=== PATIENT | male | born 1935 | race Caucasian/White ===

== ENCOUNTER 2017-01-28 12:24 | Inpatient (IN) | payer OTHER, MEDICARE ==
[~2017-01-28 12:24] MED LIST: ADALAT CC60 M1 PO; ALLOPURINOL300 M1 PO; FISH OIL 1,0001 EA10 PO; FUROSEMIDE40 M2 PO; GLIPIZIDE5 M2 PO; LIDOCAINE HC28.35 GM TP; PRINIVIL10 M1 PO; REFRESH PLUS1 EACH OP; ZOCOR80 M1 PO
[2017-01-28] MEDS ORDERED: LASIX40 M1 PO (12:53)
[2017-01-28] MEDS ORDERED: PREDNISONE5 M1 PO (12:53)
[2017-01-28] MEDS ORDERED: ZYLOPRIM300 M1 PO (12:54)
[2017-01-28] MEDS ORDERED: ELIQUIS5 M1 PO (12:54)
[2017-01-28] MEDS ORDERED: ARTIFICIAL TEAR1512 EACH EYE (12:55)
[2017-01-28] MEDS ORDERED: ASPIRIN EC81 MG PO (12:55)
[2017-01-28] MEDS ORDERED: LOPRESSOR50 M1 PO (12:56)
[2017-01-28 13:13] LABS: BASO % 0.2 % (0-2); EOS % 0.4 % (0-7); HCT-HEMATOCRIT 37.5 % (36.0-53.5); HGB-HEMOGLOBIN 11.7 gm/dl (13.5-17.0); IMMATURE GRANULOCYTES ABSOLUTE 0.03 tho/cmm (0-0.03); IMMATURE GRANULOCYTES PERCENT 0.5 % (0-0.3); LYMPH % 20.1 % (20-45); LYMPH ABSOLUTE COUNT 1.1 tho/cmm (0.8-4.5); MCH (MEAN CORPUSCULAR HGB) 29.1 pg (28.0-32.0); MCHC MEAN CORPUSCULAR HGB CONC 31.2 % (32.0-36.0); MCV (MEAN CELL VOLUME) 93.3 fl (82.0-96.0); MONO % 8.5 % (0-12); MONOCYTE ABSOLUTE COUNT 0.5 tho/cmm (0.0-1.2); NEUTROPHILS % 70.3 % (40-80); RED BLOOD COUNT 4.02 mil/cmm (4.40-5.70); WHITE BLOOD COUNT 5.7 tho/cmm (4.0-10.0)
[2017-01-28 13:20] LABS: INR 1.4 INR (0.9-1.1); PROTHROMBIN TIME 16.5 SECONDS (9.0-13.6)
[2017-01-28 13:30] LABS: PLATELET COUNT 87 tho/cmm (150-450)
[2017-01-28 13:38] LABS: ALB/GLOB RATIO 0.6 (0.8-2.0); ALBUMIN 2.4 g/dl (3.5-5.0); ALKALINE PHOSPHATASE 98 U/L (33-138); ALT/SGPT 42 U/L (12-78); ANION GAP 12 mmol/L (0-20); BILIRUBIN,TOTAL 2.1 mg/dl (0.0-1.5); BLOOD UREA NITROGEN 53 mg/dl (6-24); CALCIUM 8.4 mg/dl (8.5-10.5); CARBON DIOXIDE-VENOUS 27 mmol/L (22-32); CHLORIDE 101 mmol/l (96-110); GLUCOSE 117 mg/dL (70-110); SODIUM 136 mmol/L (135-145); eGFR VALUE FOR BLACK 39 mL/Min
[2017-01-28 13:39] LABS: AST/SGOT 62 U/L (10-40); POTASSIUM 4.4 mmol/L (3.7-5.1)
[2017-01-28 21:01] LABS: C-REACTIVE PROTEIN 13.7 mg/dl (0-0.9); MAGNESIUM 2.1 mg/dl (1.3-2.6)
[2017-01-29 05:53] LABS: ANION GAP 13 mmol/L (0-20); BLOOD UREA NITROGEN 46 mg/dl (6-24); CALCIUM 7.8 mg/dl (8.5-10.5); CARBON DIOXIDE-VENOUS 26 mmol/L (22-32); CHLORIDE 105 mmol/l (96-110); CREATININE 1.78 mg/dl (0.60-1.30); GLUCOSE 110 mg/dL (70-110); POTASSIUM 4.2 mmol/L (3.7-5.1); SODIUM 140 mmol/L (135-145); eGFR VALUE FOR BLACK 40 mL/Min
[2017-01-30 05:25] LABS: ANION GAP 14 mmol/L (0-20); BLOOD UREA NITROGEN 44 mg/dl (6-24); CALCIUM 7.4 mg/dl (8.5-10.5); CARBON DIOXIDE-VENOUS 24 mmol/L (22-32); CHLORIDE 107 mmol/l (96-110); CREATININE 1.86 mg/dl (0.60-1.30); GLUCOSE 133 mg/dL (70-110); POTASSIUM 3.6 mmol/L (3.7-5.1); SODIUM 141 mmol/L (135-145); eGFR VALUE FOR BLACK 38 mL/Min
[2017-01-31 06:28] LABS: BASO % 0.2 % (0-2); EOS % 0.7 % (0-7); HCT-HEMATOCRIT 35.4 % (36.0-53.5); HGB-HEMOGLOBIN 10.9 gm/dl (13.5-17.0); IMMATURE GRANULOCYTES ABSOLUTE 0.04 tho/cmm (0-0.03); IMMATURE GRANULOCYTES PERCENT 0.7 % (0-0.3); LYMPH % 13.9 % (20-45); LYMPH ABSOLUTE COUNT 0.8 tho/cmm (0.8-4.5); MCHC MEAN CORPUSCULAR HGB CONC 30.8 % (32.0-36.0); MCV (MEAN CELL VOLUME) 94.1 fl (82.0-96.0); MONO % 4.4 % (0-12); MONOCYTE ABSOLUTE COUNT 0.3 tho/cmm (0.0-1.2); NEUTROPHIL ABSOLUTE COUNT 4.7 tho/cmm (1.6-8.0); NEUTROPHIL-AUTOMATED 4.7 tho/cmm (1.6-8.0); NEUTROPHILS % 80.1 % (40-80); PLATELET COUNT 81 tho/cmm (150-450); RED BLOOD COUNT 3.76 mil/cmm (4.40-5.70); RED CELL DISTRIBUTION WIDTH 16.7 % (12.4-16.4); WHITE BLOOD COUNT 5.9 tho/cmm (4.0-10.0)
[2017-01-31 06:46] LABS: ANION GAP 10 mmol/L (0-20); BLOOD UREA NITROGEN 46 mg/dl (6-24); C-REACTIVE PROTEIN 7.8 mg/dl (0-0.9); CALCIUM 8.2 mg/dl (8.5-10.5); CARBON DIOXIDE-VENOUS 30 mmol/L (22-32); CHLORIDE 107 mmol/l (96-110); CREATININE 2.08 mg/dl (0.60-1.30); GLUCOSE 90 mg/dL (70-110); POTASSIUM 4.1 mmol/L (3.7-5.1); SODIUM 143 mmol/L (135-145); eGFR VALUE FOR BLACK 33 mL/Min
[2017-02-01 05:30] LABS: BASO % 0.2 % (0-2); EOSINOPHIL ABSOLUTE COUNT 0.1 tho/cmm (0.0-0.7); HCT-HEMATOCRIT 39.1 % (36.0-53.5); HGB-HEMOGLOBIN 11.9 gm/dl (13.5-17.0); IMMATURE GRANULOCYTES ABSOLUTE 0.06 tho/cmm (0-0.03); IMMATURE GRANULOCYTES PERCENT 0.9 % (0-0.3); LYMPH % 20.3 % (20-45); LYMPH ABSOLUTE COUNT 1.3 tho/cmm (0.8-4.5); MCHC MEAN CORPUSCULAR HGB CONC 30.4 % (32.0-36.0); MCV (MEAN CELL VOLUME) 95.4 fl (82.0-96.0); MEAN PLATELET VOLUME 12.9 cmc (9.4-12.4); MONOCYTE ABSOLUTE COUNT 0.5 tho/cmm (0.0-1.2); NEUTROPHIL ABSOLUTE COUNT 4.5 tho/cmm (1.6-8.0); NEUTROPHIL-AUTOMATED 4.5 tho/cmm (1.6-8.0); NEUTROPHILS % 68.6 % (40-80); PLATELET COUNT 88 tho/cmm (150-450); RED CELL DISTRIBUTION WIDTH 16.9 % (12.4-16.4); WHITE BLOOD COUNT 6.6 tho/cmm (4.0-10.0)
[2017-02-01 05:45] LABS: ANION GAP 12 mmol/L (0-20); BLOOD UREA NITROGEN 51 mg/dl (6-24); CALCIUM 8.5 mg/dl (8.5-10.5); CARBON DIOXIDE-VENOUS 28 mmol/L (22-32); CHLORIDE 108 mmol/l (96-110); CREATININE 2.28 mg/dl (0.60-1.30); GLUCOSE 111 mg/dL (70-110); POTASSIUM 4.5 mmol/L (3.7-5.1); SODIUM 143 mmol/L (135-145); eGFR VALUE FOR BLACK 30 mL/Min
[2017-02-01 19:35] LABS: URINE BILIRUBIN NEGATIVE (NEG); URINE BLOOD NEGATIVE (NEG); URINE GLUCOSE (UA) NEGATIVE (NEG); URINE KETONE SMALL (NEG); URINE LEUKOCYTE ESTERASE NEGATIVE (NEG); URINE NITRITE NEGATIVE (NEG); URINE PROTEIN MODERATE (NEG)
[2017-02-01 19:38] LABS: URINE APPEARANCE CLEAR; URINE COLOR YELLOW
[2017-02-01 19:46] LABS: URINE RBC 0-1 /[HPF] (0-5)
[2017-02-01 19:48] LABS: URINE EPITHELIAL CELLS 0-1 /[HPF] (0-10)
[2017-02-01 19:49] LABS: URINE AMORPHOUS 1+; URINE MUCUS 1+
[2017-02-01 19:54] LABS: URINE CREATININE-RANDOM 155 mg/dl (30-125); URINE SODIUM-RANDOM 18 mmol/L (20-110)
[2017-02-02 04:47] LABS: BASO % 0.2 % (0-2); EOS % 0.6 % (0-7); HCT-HEMATOCRIT 37.7 % (36.0-53.5); HGB-HEMOGLOBIN 11.3 gm/dl (13.5-17.0); IMMATURE GRANULOCYTES ABSOLUTE 0.06 tho/cmm (0-0.03); IMMATURE GRANULOCYTES PERCENT 0.9 % (0-0.3); LYMPH % 14.3 % (20-45); MCH (MEAN CORPUSCULAR HGB) 28.8 pg (28.0-32.0); MCV (MEAN CELL VOLUME) 95.9 fl (82.0-96.0); MEAN PLATELET VOLUME 12.2 cmc (9.4-12.4); MONO % 5.1 % (0-12); MONOCYTE ABSOLUTE COUNT 0.3 tho/cmm (0.0-1.2); NEUTROPHIL ABSOLUTE COUNT 5.3 tho/cmm (1.6-8.0); NEUTROPHIL-AUTOMATED 5.3 tho/cmm (1.6-8.0); NEUTROPHILS % 78.9 % (40-80); PLATELET COUNT 91 tho/cmm (150-450); RED BLOOD COUNT 3.93 mil/cmm (4.40-5.70); RED CELL DISTRIBUTION WIDTH 16.8 % (12.4-16.4); WHITE BLOOD COUNT 6.7 tho/cmm (4.0-10.0)
[2017-02-02 04:55] LABS: ALBUMIN 2.5 g/dl (3.5-5.0); ANION GAP 10 mmol/L (0-20); BLOOD UREA NITROGEN 50 mg/dl (6-24); CALCIUM 8.4 mg/dl (8.5-10.5); CARBON DIOXIDE-VENOUS 29 mmol/L (22-32); CHLORIDE 108 mmol/l (96-110); CREATININE 1.99 mg/dl (0.60-1.30); GLUCOSE 98 mg/dL (70-110); MAGNESIUM 2.5 mg/dl (1.3-2.6); PHOSPHOROUS 4.5 mg/dl (2.5-4.9); POTASSIUM 4.8 mmol/L (3.7-5.1); SODIUM 142 mmol/L (135-145); eGFR VALUE FOR BLACK 35 mL/Min
[2017-02-03 06:35] LABS: HCT-HEMATOCRIT 36.6 % (36.0-53.5); HGB-HEMOGLOBIN 11.2 gm/dl (13.5-17.0); IMMATURE GRANULOCYTES ABSOLUTE 0.05 tho/cmm (0-0.03); IMMATURE GRANULOCYTES PERCENT 0.8 % (0-0.3); LYMPH % 7.8 % (20-45); LYMPH ABSOLUTE COUNT 0.5 tho/cmm (0.8-4.5); MCH (MEAN CORPUSCULAR HGB) 28.8 pg (28.0-32.0); MCHC MEAN CORPUSCULAR HGB CONC 30.6 % (32.0-36.0); MCV (MEAN CELL VOLUME) 94.1 fl (82.0-96.0); MEAN PLATELET VOLUME 12.4 cmc (9.4-12.4); MONO % 0.6 % (0-12); NEUTROPHIL ABSOLUTE COUNT 5.8 tho/cmm (1.6-8.0); NEUTROPHIL-AUTOMATED 5.8 tho/cmm (1.6-8.0); NEUTROPHILS % 90.8 % (40-80); PLATELET COUNT 104 tho/cmm (150-450); RED BLOOD COUNT 3.89 mil/cmm (4.40-5.70); RED CELL DISTRIBUTION WIDTH 16.7 % (12.4-16.4); WHITE BLOOD COUNT 6.4 tho/cmm (4.0-10.0)
[2017-02-03 06:47] LABS: ANION GAP 12 mmol/L (0-20); BLOOD UREA NITROGEN 58 mg/dl (6-24); CALCIUM 8.9 mg/dl (8.5-10.5); CARBON DIOXIDE-VENOUS 29 mmol/L (22-32); CHLORIDE 105 mmol/l (96-110); CREATININE 2.44 mg/dl (0.60-1.30); POTASSIUM 5.1 mmol/L (3.7-5.1); SODIUM 141 mmol/L (135-145); eGFR VALUE FOR BLACK 27 mL/Min
[2017-02-03 07:20] LABS: GLUCOSE 180 mg/dL (70-110)
[2017-02-04 05:20] LABS: HCT-HEMATOCRIT 34.6 % (36.0-53.5); HGB-HEMOGLOBIN 10.8 gm/dl (13.5-17.0); IMMATURE GRANULOCYTES ABSOLUTE 0.04 tho/cmm (0-0.03); IMMATURE GRANULOCYTES PERCENT 0.4 % (0-0.3); LYMPH % 3.7 % (20-45); LYMPH ABSOLUTE COUNT 0.3 tho/cmm (0.8-4.5); MCH (MEAN CORPUSCULAR HGB) 29.1 pg (28.0-32.0); MCHC MEAN CORPUSCULAR HGB CONC 31.2 % (32.0-36.0); MCV (MEAN CELL VOLUME) 93.3 fl (82.0-96.0); MEAN PLATELET VOLUME 12.7 cmc (9.4-12.4); MONO % 1.4 % (0-12); MONOCYTE ABSOLUTE COUNT 0.1 tho/cmm (0.0-1.2); NEUTROPHIL ABSOLUTE COUNT 8.7 tho/cmm (1.6-8.0); NEUTROPHIL-AUTOMATED 8.7 tho/cmm (1.6-8.0); NEUTROPHILS % 94.5 % (40-80); PLATELET COUNT 121 tho/cmm (150-450); RED BLOOD COUNT 3.71 mil/cmm (4.40-5.70); RED CELL DISTRIBUTION WIDTH 16.8 % (12.4-16.4); WHITE BLOOD COUNT 9.2 tho/cmm (4.0-10.0)
[2017-02-04 05:23] LABS: ANION GAP 15 mmol/L (0-20); BLOOD UREA NITROGEN 69 mg/dl (6-24); CALCIUM 8.9 mg/dl (8.5-10.5); CARBON DIOXIDE-VENOUS 25 mmol/L (22-32); CHLORIDE 104 mmol/l (96-110); CREATININE 2.63 mg/dl (0.60-1.30); GLUCOSE 200 mg/dL (70-110); POTASSIUM 4.5 mmol/L (3.7-5.1); SODIUM 139 mmol/L (135-145); eGFR VALUE FOR BLACK 25 mL/Min
[2017-02-04 21:51] LABS: URINE PRT/CR RATIO 0.26 Ratio (0.0-0.20); URINE TOTAL PROTEIN-RANDOM 41.3 mg/dl (<11.8)
[2017-02-05 04:47] LABS: BASO % 0.1 % (0-2); HCT-HEMATOCRIT 38.5 % (36.0-53.5); HGB-HEMOGLOBIN 11.9 gm/dl (13.5-17.0); IMMATURE GRANULOCYTES ABSOLUTE 0.07 tho/cmm (0-0.03); IMMATURE GRANULOCYTES PERCENT 0.6 % (0-0.3); LYMPH % 4.8 % (20-45); LYMPH ABSOLUTE COUNT 0.6 tho/cmm (0.8-4.5); MCHC MEAN CORPUSCULAR HGB CONC 30.9 % (32.0-36.0); MCV (MEAN CELL VOLUME) 93.9 fl (82.0-96.0); MONOCYTE ABSOLUTE COUNT 0.5 tho/cmm (0.0-1.2); NEUTROPHIL ABSOLUTE COUNT 10.7 tho/cmm (1.6-8.0); NEUTROPHIL-AUTOMATED 10.7 tho/cmm (1.6-8.0); NEUTROPHILS % 90.5 % (40-80); PLATELET COUNT 134 tho/cmm (150-450); RED CELL DISTRIBUTION WIDTH 17.7 % (12.4-16.4); WHITE BLOOD COUNT 11.9 tho/cmm (4.0-10.0)
[2017-02-05 05:11] LABS: ALBUMIN 2.8 g/dl (3.5-5.0); ANION GAP 12 mmol/L (0-20); BLOOD UREA NITROGEN 87 mg/dl (6-24); CALCIUM 8.9 mg/dl (8.5-10.5); CARBON DIOXIDE-VENOUS 28 mmol/L (22-32); CHLORIDE 103 mmol/l (96-110); CREATININE 2.93 mg/dl (0.60-1.30); GLUCOSE 199 mg/dL (70-110); MAGNESIUM 2.7 mg/dl (1.3-2.6); PHOSPHOROUS 3.9 mg/dl (2.5-4.9); SODIUM 138 mmol/L (135-145); eGFR VALUE FOR BLACK 22 mL/Min
[2017-02-06 04:43] LABS: BASO % 0.1 % (0-2); HCT-HEMATOCRIT 38.1 % (36.0-53.5); HGB-HEMOGLOBIN 11.7 gm/dl (13.5-17.0); IMMATURE GRANULOCYTES ABSOLUTE 0.07 tho/cmm (0-0.03); IMMATURE GRANULOCYTES PERCENT 0.9 % (0-0.3); LYMPH ABSOLUTE COUNT 0.5 tho/cmm (0.8-4.5); MCH (MEAN CORPUSCULAR HGB) 28.7 pg (28.0-32.0); MCHC MEAN CORPUSCULAR HGB CONC 30.7 % (32.0-36.0); MCV (MEAN CELL VOLUME) 93.6 fl (82.0-96.0); MEAN PLATELET VOLUME 12.5 cmc (9.4-12.4); MONO % 3.7 % (0-12); MONOCYTE ABSOLUTE COUNT 0.3 tho/cmm (0.0-1.2); NEUTROPHIL ABSOLUTE COUNT 7.3 tho/cmm (1.6-8.0); NEUTROPHIL-AUTOMATED 7.3 tho/cmm (1.6-8.0); NEUTROPHILS % 89.3 % (40-80); PLATELET COUNT 110 tho/cmm (150-450); RED BLOOD COUNT 4.07 mil/cmm (4.40-5.70); WHITE BLOOD COUNT 8.1 tho/cmm (4.0-10.0)
[2017-02-06 04:52] LABS: ANION GAP 9 mmol/L (0-20); BLOOD UREA NITROGEN 95 mg/dl (6-24); CALCIUM 8.8 mg/dl (8.5-10.5); CARBON DIOXIDE-VENOUS 28 mmol/L (22-32); CHLORIDE 104 mmol/l (96-110); CREATININE 2.81 mg/dl (0.60-1.30); GLUCOSE 202 mg/dL (70-110); POTASSIUM 4.9 mmol/L (3.7-5.1); SODIUM 136 mmol/L (135-145); eGFR VALUE FOR BLACK 23 mL/Min
[2017-02-07 04:30] LABS: ALBUMIN 2.6 g/dl (3.5-5.0); ANION GAP 9 mmol/L (0-20); BLOOD UREA NITROGEN 97 mg/dl (6-24); CALCIUM 8.7 mg/dl (8.5-10.5); CARBON DIOXIDE-VENOUS 28 mmol/L (22-32); CHLORIDE 104 mmol/l (96-110); CREATININE 2.52 mg/dl (0.60-1.30); GLUCOSE 178 mg/dL (70-110); PHOSPHOROUS 4.8 mg/dl (2.5-4.9); POTASSIUM 5.3 mmol/L (3.7-5.1); SODIUM 136 mmol/L (135-145); eGFR VALUE FOR BLACK 26 mL/Min
[2017-02-07 04:53] LABS: BASO % 0.2 % (0-2); HCT-HEMATOCRIT 38.6 % (36.0-53.5); HGB-HEMOGLOBIN 12.1 gm/dl (13.5-17.0); IMMATURE GRANULOCYTES ABSOLUTE 0.14 tho/cmm (0-0.03); IMMATURE GRANULOCYTES PERCENT 1.5 % (0-0.3); LYMPH % 6.3 % (20-45); LYMPH ABSOLUTE COUNT 0.6 tho/cmm (0.8-4.5); MCH (MEAN CORPUSCULAR HGB) 29.3 pg (28.0-32.0); MCHC MEAN CORPUSCULAR HGB CONC 31.3 % (32.0-36.0); MCV (MEAN CELL VOLUME) 93.5 fl (82.0-96.0); MEAN PLATELET VOLUME 13.1 cmc (9.4-12.4); MONO % 12.5 % (0-12); MONOCYTE ABSOLUTE COUNT 1.2 tho/cmm (0.0-1.2); NEUTROPHIL ABSOLUTE COUNT 7.4 tho/cmm (1.6-8.0); NEUTROPHIL-AUTOMATED 7.4 tho/cmm (1.6-8.0); NEUTROPHILS % 79.5 % (40-80); PLATELET COUNT 98 tho/cmm (150-450); RED BLOOD COUNT 4.13 mil/cmm (4.40-5.70); RED CELL DISTRIBUTION WIDTH 18.3 % (12.4-16.4); WHITE BLOOD COUNT 9.4 tho/cmm (4.0-10.0)
[2017-02-08 05:45] LABS: ANION GAP 10 mmol/L (0-20); BLOOD UREA NITROGEN 87 mg/dl (6-24); CALCIUM 8.8 mg/dl (8.5-10.5); CARBON DIOXIDE-VENOUS 29 mmol/L (22-32); CHLORIDE 104 mmol/l (96-110); CREATININE 2.37 mg/dl (0.60-1.30); GLUCOSE 183 mg/dL (70-110); SODIUM 138 mmol/L (135-145); eGFR VALUE FOR BLACK 28 mL/Min
[2017-02-08 05:50] LABS: POTASSIUM 5.3 mmol/L (3.7-5.1)
[2017-02-08] MEDS ORDERED: LIDODERM1 EACH TD (15:06)
[2017-02-08] MEDS ORDERED: ELIQUIS2.5 M1 PO (15:07)
[2017-02-08] MEDS ORDERED: DELTASONE20 MG PO (15:10)
--- NOTE | 2017-02-08 18:04 | NUR ---
PATIENT AND SON EDUCATED ON EDEMA WEAR AND TOLD TO REMOVE EDEMA WEAR BEFORE BED.
== END 2017-02-08 17:30 | disposition home health service (06) | DRG 291 ==
LOC: EDMED 12:24 → EMR2 16:32 → PCUA 17:31
PROVIDERS: Emergency Medicine; Family Medicine; Internal Medicine; Internal Medicine Cardiovascular Disease; Internal Medicine Nephrology; Physician Assistant; ADMIT Family Medicine
DX: I13.0 Hypertensive heart and chronic kidney disease with heart failure and stage 1 through stage 4 chronic kidney disease, or unspecified chronic kidney disease (principal); I50.31 Acute diastolic (congestive) heart failure; N17.9 Acute kidney failure, unspecified; I47.2 Ventricular tachycardia; I95.9 Hypotension, unspecified; D69.6 Thrombocytopenia, unspecified; E11.22 Type 2 diabetes mellitus with diabetic chronic kidney disease; N10 Acute pyelonephritis; N18.3 Chronic kidney disease, stage 3 (moderate); I27.2 Other secondary pulmonary hypertension; I48.92 Unspecified atrial flutter; E87.5 Hyperkalemia; E78.5 Hyperlipidemia, unspecified; G89.29 Other chronic pain; M54.9 Dorsalgia, unspecified; M10.9 Gout, unspecified; I25.10 Atherosclerotic heart disease of native coronary artery without angina pectoris; J20.4 Acute bronchitis due to parainfluenza virus; D64.9 Anemia, unspecified; Z66 Do not resuscitate; Z95.1 Presence of aortocoronary bypass graft; Z79.82 Long term (current) use of aspirin; Z79.01 Long term (current) use of anticoagulants; Z79.84 Long term (current) use of oral hypoglycemic drugs; Z79.899 Other long term (current) drug therapy; Z79.52 Long term (current) use of systemic steroids; T37.8X5A Adverse effect of other specified systemic anti-infectives and antiparasitics, initial encounter; T36.0X5A Adverse effect of penicillins, initial encounter; Y92.239 Unspecified place in hospital as the place of occurrence of the external cause
CPT/HCPCS: A9500; G0008; J1815; J1940; J1956; J2405; J2543; J2785; J2920; J2930; J3370; J7030; J7050; J7512; P9045

== ENCOUNTER 2017-03-06 12:26 | Inpatient (IN) | payer OTHER, MEDICARE ==
[~2017-03-06 12:26] MED LIST changes: +ARTIFICIAL TEAR1512 EACH EYE; +ASPIRIN EC81 MG PO; +DELTASONE20 MG PO; +ELIQUIS2.5 M1 PO; +ELIQUIS5 M1 PO; +LASIX40 M1 PO; +LIDODERM1 EACH TD; +LOPRESSOR50 M1 PO; +PREDNISONE5 M1 PO; +ZYLOPRIM300 M1 PO
[2017-03-06] MEDS ORDERED: SYMBICORT 80-41 PUFF INH (12:40)
[2017-03-06] MEDS ORDERED: LASIX40 M1 PO (12:41)
[2017-03-06] MEDS ORDERED: DELTASONE20 MG PO (12:42)
[2017-03-06] MEDS ORDERED: SPIRIVA18 MC1 INH (12:43)
[2017-03-06 13:13] LABS: BASO % 0.2 % (0-2); EOSINOPHIL ABSOLUTE COUNT 0.1 tho/cmm (0.0-0.7); HCT-HEMATOCRIT 35.8 % (36.0-53.5); HGB-HEMOGLOBIN 10.8 gm/dl (13.5-17.0); IMMATURE GRANULOCYTES ABSOLUTE 0.11 tho/cmm (0-0.03); IMMATURE GRANULOCYTES PERCENT 0.9 % (0-0.3); MCH (MEAN CORPUSCULAR HGB) 30.3 pg (28.0-32.0); MCHC MEAN CORPUSCULAR HGB CONC 30.2 % (32.0-36.0); MEAN PLATELET VOLUME 11.9 cmc (9.4-12.4); MONO % 5.2 % (0-12); MONOCYTE ABSOLUTE COUNT 0.6 tho/cmm (0.0-1.2); NEUTROPHIL ABSOLUTE COUNT 10.4 tho/cmm (1.6-8.0); NEUTROPHIL-AUTOMATED 10.4 tho/cmm (1.6-8.0); NEUTROPHILS % 84.7 % (40-80); PLATELET COUNT 111 tho/cmm (150-450); RED BLOOD COUNT 3.56 mil/cmm (4.40-5.70); RED CELL DISTRIBUTION WIDTH 20.8 % (12.4-16.4); WHITE BLOOD COUNT 12.3 tho/cmm (4.0-10.0)
[2017-03-06 13:32] LABS: INR 1.7 INR (0.9-1.1); PROTHROMBIN TIME 19.8 SECONDS (9.0-13.6)
[2017-03-06 13:33] LABS: MCV (MEAN CELL VOLUME) 100.6 fl (82.0-96.0)
[2017-03-06 13:47] LABS: ANION GAP 17 mmol/L (0-20); BLOOD UREA NITROGEN 84 mg/dl (6-24); CALCIUM 8.2 mg/dl (8.5-10.5); CARBON DIOXIDE-VENOUS 27 mmol/L (22-32); CHLORIDE 106 mmol/l (96-110); CREATININE 2.64 mg/dl (0.60-1.30); GLUCOSE 114 mg/dL (70-110); POTASSIUM 3.7 mmol/L (3.7-5.1); SODIUM 146 mmol/L (135-145); eGFR VALUE FOR BLACK 25 mL/Min
[2017-03-06 14:45] LABS: URINE BILIRUBIN NEGATIVE (NEG); URINE BLOOD SMALL (NEG); URINE GLUCOSE (UA) NEGATIVE (NEG); URINE KETONE NEGATIVE (NEG); URINE LEUKOCYTE ESTERASE NEGATIVE (NEG); URINE NITRITE NEGATIVE (NEG); URINE PROTEIN NEGATIVE (NEG)
[2017-03-06 14:46] LABS: URINE APPEARANCE CLEAR; URINE COLOR YELLOW
[2017-03-06 15:24] LABS: URINE AMORPHOUS 1+; URINE EPITHELIAL CELLS 0-1 /[HPF] (0-10); URINE RBC 0-1 /[HPF] (0-5); URINE WBC 0-1 /[HPF] (0-5)
[2017-03-06 17:36] LABS: ABG CO2 ARTERIAL 25 mmol/L (21-27); ARTERIAL BLD GAS O2 SATURATION 98 % (95-98); ARTERIAL BLOOD GAS PCO2 45 mmHg (32-45); ARTERIAL PO2 115 mmHg (70-100); BICARBONATE 24 mmol/L (21-28); BLOOD GAS BASE EXCESS -2 mM/L (-/+3); PH 7.34 Units (7.35-7.45)
[2017-03-07 03:47] LABS: BASO % 0.1 % (0-2); EOS % 0.5 % (0-7); EOSINOPHIL ABSOLUTE COUNT 0.1 tho/cmm (0.0-0.7); HCT-HEMATOCRIT 35.8 % (36.0-53.5); IMMATURE GRANULOCYTES ABSOLUTE 0.32 tho/cmm (0-0.03); IMMATURE GRANULOCYTES PERCENT 1.7 % (0-0.3); LYMPH % 5.9 % (20-45); LYMPH ABSOLUTE COUNT 1.1 tho/cmm (0.8-4.5); MCH (MEAN CORPUSCULAR HGB) 30.1 pg (28.0-32.0); MCHC MEAN CORPUSCULAR HGB CONC 30.7 % (32.0-36.0); MCV (MEAN CELL VOLUME) 98.1 fl (82.0-96.0); MEAN PLATELET VOLUME 12.3 cmc (9.4-12.4); MONO % 3.5 % (0-12); MONOCYTE ABSOLUTE COUNT 0.7 tho/cmm (0.0-1.2); NEUTROPHIL ABSOLUTE COUNT 16.8 tho/cmm (1.6-8.0); NEUTROPHIL-AUTOMATED 16.8 tho/cmm (1.6-8.0); NEUTROPHILS % 88.3 % (40-80); PLATELET COUNT 101 tho/cmm (150-450); RED BLOOD COUNT 3.65 mil/cmm (4.40-5.70); RED CELL DISTRIBUTION WIDTH 20.8 % (12.4-16.4)
[2017-03-07 04:02] LABS: ANION GAP 16 mmol/L (0-20); BLOOD UREA NITROGEN 83 mg/dl (6-24); CALCIUM 7.7 mg/dl (8.5-10.5); CARBON DIOXIDE-VENOUS 27 mmol/L (22-32); CHLORIDE 104 mmol/l (96-110); CREATININE 2.33 mg/dl (0.60-1.30); POTASSIUM 3.9 mmol/L (3.7-5.1); SODIUM 143 mmol/L (135-145); eGFR VALUE FOR BLACK 29 mL/Min
[2017-03-07 04:06] LABS: GLUCOSE 180 mg/dL (70-110)
[2017-03-08 05:00] LABS: EOS % 1.4 % (0-7); EOSINOPHIL ABSOLUTE COUNT 0.2 tho/cmm (0.0-0.7); HCT-HEMATOCRIT 33.6 % (36.0-53.5); HGB-HEMOGLOBIN 10.3 gm/dl (13.5-17.0); IMMATURE GRANULOCYTES ABSOLUTE 0.12 tho/cmm (0-0.03); IMMATURE GRANULOCYTES PERCENT 0.9 % (0-0.3); LYMPH % 6.1 % (20-45); LYMPH ABSOLUTE COUNT 0.9 tho/cmm (0.8-4.5); MCHC MEAN CORPUSCULAR HGB CONC 30.7 % (32.0-36.0); MEAN PLATELET VOLUME 12.7 cmc (9.4-12.4); MONO % 5.6 % (0-12); MONOCYTE ABSOLUTE COUNT 0.8 tho/cmm (0.0-1.2); NEUTROPHIL ABSOLUTE COUNT 12.1 tho/cmm (1.6-8.0); NEUTROPHIL-AUTOMATED 12.1 tho/cmm (1.6-8.0); PLATELET COUNT 79 tho/cmm (150-450); RED BLOOD COUNT 3.43 mil/cmm (4.40-5.70); RED CELL DISTRIBUTION WIDTH 21.1 % (12.4-16.4)
[2017-03-08 05:16] LABS: ALB/GLOB RATIO 0.4 (0.8-2.0); ALBUMIN 1.7 g/dl (3.5-5.0); ALKALINE PHOSPHATASE 63 U/L (33-138); ALT/SGPT 32 U/L (12-78); ANION GAP 16 mmol/L (0-20); AST/SGOT 38 U/L (10-40); BILIRUBIN,TOTAL 1.3 mg/dl (0.0-1.5); BLOOD UREA NITROGEN 71 mg/dl (6-24); CARBON DIOXIDE-VENOUS 27 mmol/L (22-32); CHLORIDE 105 mmol/l (96-110); CREATININE 2.12 mg/dl (0.60-1.30); GLUCOSE 120 mg/dL (70-110); MAGNESIUM 1.9 mg/dl (1.8-2.6); PHOSPHOROUS 3.6 mg/dl (2.5-4.9); POTASSIUM 3.5 mmol/L (3.7-5.1); SODIUM 144 mmol/L (135-145); eGFR VALUE FOR BLACK 32 mL/Min
[2017-03-08 05:45] LABS: PROCALCITONIN 13.64 ng/ml (0.05-0.09)
--- NOTE | 2017-03-08 14:56 | NUR ---
[address] DEPRESSION WITH MONITOR, STAT EKG AND TRIPONIN ORDERED, EKG HAS CHANGES IN LEADS 2 AND LATERAL, UNSURE IF ALOT DIFFERENT THAN BEFORE, ALSO STAT TRIPONIN DRAWN AND SHAKEEL RN TO CALL WITH RESULTS WHEN BACK. PT DID HAVE SOME GENERALIZED DISCOMFORT EARLIER IN LEGS, NOT CHEST, AND 1 PAIN PILL WAS GIVEN TO HIM.
[2017-03-09 05:16] LABS: BASO % 0.1 % (0-2); EOS % 1.4 % (0-7); EOSINOPHIL ABSOLUTE COUNT 0.2 tho/cmm (0.0-0.7); HGB-HEMOGLOBIN 10.3 gm/dl (13.5-17.0); IMMATURE GRANULOCYTES ABSOLUTE 0.11 tho/cmm (0-0.03); IMMATURE GRANULOCYTES PERCENT 0.8 % (0-0.3); LYMPH % 8.4 % (20-45); LYMPH ABSOLUTE COUNT 1.2 tho/cmm (0.8-4.5); MCH (MEAN CORPUSCULAR HGB) 29.9 pg (28.0-32.0); MCHC MEAN CORPUSCULAR HGB CONC 30.3 % (32.0-36.0); MCV (MEAN CELL VOLUME) 98.6 fl (82.0-96.0); MONO % 4.3 % (0-12); MONOCYTE ABSOLUTE COUNT 0.6 tho/cmm (0.0-1.2); NEUTROPHIL ABSOLUTE COUNT 11.9 tho/cmm (1.6-8.0); NEUTROPHIL-AUTOMATED 11.9 tho/cmm (1.6-8.0); PLATELET COUNT 69 tho/cmm (150-450); RED BLOOD COUNT 3.45 mil/cmm (4.40-5.70); RED CELL DISTRIBUTION WIDTH 20.9 % (12.4-16.4)
[2017-03-09 05:30] LABS: ANION GAP 17 mmol/L (0-20); BLOOD UREA NITROGEN 68 mg/dl (6-24); CALCIUM 8.2 mg/dl (8.5-10.5); CARBON DIOXIDE-VENOUS 23 mmol/L (22-32); CHLORIDE 101 mmol/l (96-110); GLUCOSE 145 mg/dL (70-110); PHOSPHOROUS 4.9 mg/dl (2.5-4.9); POTASSIUM 4.3 mmol/L (3.7-5.1); SODIUM 137 mmol/L (135-145); eGFR VALUE FOR BLACK 28 mL/Min
[2017-03-09 05:38] LABS: MAGNESIUM 2.5 mg/dl (1.8-2.6)
[2017-03-09 07:19] LABS: WBC MORPHOLOGY TOXIC GRANULATION
[2017-03-10 07:14] LABS: BASO % 0.2 % (0-2); EOSINOPHIL ABSOLUTE COUNT 0.1 tho/cmm (0.0-0.7); HCT-HEMATOCRIT 30.4 % (36.0-53.5); HGB-HEMOGLOBIN 9.3 gm/dl (13.5-17.0); IMMATURE GRANULOCYTES ABSOLUTE 0.13 tho/cmm (0-0.03); IMMATURE GRANULOCYTES PERCENT 1.1 % (0-0.3); LYMPH % 6.4 % (20-45); LYMPH ABSOLUTE COUNT 0.8 tho/cmm (0.8-4.5); MCHC MEAN CORPUSCULAR HGB CONC 30.6 % (32.0-36.0); MCV (MEAN CELL VOLUME) 98.1 fl (82.0-96.0); MONO % 4.9 % (0-12); MONOCYTE ABSOLUTE COUNT 0.6 tho/cmm (0.0-1.2); NEUTROPHIL ABSOLUTE COUNT 10.3 tho/cmm (1.6-8.0); NEUTROPHIL-AUTOMATED 10.3 tho/cmm (1.6-8.0); NEUTROPHILS % 86.4 % (40-80); RED CELL DISTRIBUTION WIDTH 20.4 % (12.4-16.4); WHITE BLOOD COUNT 11.9 tho/cmm (4.0-10.0)
[2017-03-10 07:30] LABS: ALBUMIN 2.1 g/dl (3.5-5.0); ANION GAP 15 mmol/L (0-20); BLOOD UREA NITROGEN 71 mg/dl (6-24); CALCIUM 8.2 mg/dl (8.5-10.5); CARBON DIOXIDE-VENOUS 26 mmol/L (22-32); CHLORIDE 99 mmol/l (96-110); GLUCOSE 127 mg/dL (70-110); MAGNESIUM 2.5 mg/dl (1.8-2.6); PHOSPHOROUS 5.1 mg/dl (2.5-4.9); SODIUM 136 mmol/L (135-145); eGFR VALUE FOR BLACK 23 mL/Min
[2017-03-10 13:37] LABS: PLATELET COUNT 52 tho/cmm (150-450)
[2017-03-11 04:52] LABS: ALBUMIN 2.2 g/dl (3.5-5.0); ANION GAP 14 mmol/L (0-20); BLOOD UREA NITROGEN 74 mg/dl (6-24); CALCIUM 8.3 mg/dl (8.5-10.5); CARBON DIOXIDE-VENOUS 26 mmol/L (22-32); CHLORIDE 98 mmol/l (96-110); CREATININE 3.23 mg/dl (0.60-1.30); GLUCOSE 132 mg/dL (70-110); PHOSPHOROUS 5.1 mg/dl (2.5-4.9); POTASSIUM 4.2 mmol/L (3.7-5.1); SODIUM 134 mmol/L (135-145); eGFR VALUE FOR BLACK 19 mL/Min
== END 2017-03-12 09:02 | disposition expired | DRG 871 ==
LOC: EDMED 12:26 → EMR2 15:25 → CCU 16:14 → PCUA 03-09 20:10
PROVIDERS: Emergency Medicine; Internal Medicine Critical Care Medicine; Internal Medicine Nephrology; Nurse Practitioner Acute Care; ADMIT Internal Medicine
PROC: 02HV33Z Insertion of Infusion Device into Superior Vena Cava, Percutaneous Approach (ICD-10-PCS; principal; 2017-03-06)
DX: A41.9 Sepsis, unspecified organism (principal); R65.21 Severe sepsis with septic shock; J96.00 Acute respiratory failure, unspecified whether with hypoxia or hypercapnia; N17.9 Acute kidney failure, unspecified; I50.33 Acute on chronic diastolic (congestive) heart failure; Z51.5 Encounter for palliative care; G92 Toxic encephalopathy; D69.6 Thrombocytopenia, unspecified; N18.3 Chronic kidney disease, stage 3 (moderate); E87.2 Acidosis; L03.116 Cellulitis of left lower limb; L03.115 Cellulitis of right lower limb; I48.92 Unspecified atrial flutter; I13.0 Hypertensive heart and chronic kidney disease with heart failure and stage 1 through stage 4 chronic kidney disease, or unspecified chronic kidney disease; I24.8 Other forms of acute ischemic heart disease; I47.1 Supraventricular tachycardia; R60.1 Generalized edema; E11.22 Type 2 diabetes mellitus with diabetic chronic kidney disease; Z66 Do not resuscitate; Z79.01 Long term (current) use of anticoagulants; I25.10 Atherosclerotic heart disease of native coronary artery without angina pectoris; Z95.1 Presence of aortocoronary bypass graft; E66.01 Morbid (severe) obesity due to excess calories; Z68.35 Body mass index [BMI] 35.0-35.9, adult; E78.5 Hyperlipidemia, unspecified; M26.609 Unspecified temporomandibular joint disorder, unspecified side; H04.129 Dry eye syndrome of unspecified lacrimal gland; Z88.8 Allergy status to other drugs, medicaments and biological substances; D64.9 Anemia, unspecified; R11.0 Nausea; I48.91 Unspecified atrial fibrillation
CPT/HCPCS: C1751; G8987-GO-CM; G8988-GO-CK; J0282; J1265; J1815; J1940; J2270; J2405; J2543; J3370; J3475; J7030; J7040; J7050; P9047